=== PATIENT | male | born 1935 | race African-American/Black ===

== ENCOUNTER 2016-10-24 16:59 | Inpatient (IN) | payer MEDICARE, OTHER ==
--- NOTE | ~2016-10-24 | OP ---
Record Of Operation [facility] [address] [place]. [address] NAME: ANICETO BOWEN : 35 STATUS : ADM IN PAT#: [id number] AGE: 81 ADM/REG DATE : 10/24/16 MR#: [id number] REPORT SERV DATE: 10/25/16 DICTATED BY: SURJIT SINGH III DATE: 10/25/16 REPORT STATUS : Draft TRANSCRIBED BY: MODL DATE: 10/25/16 DATE OF PROCEDURE: 10/25/2016 PROCEDURE: Cystoscopy, bilateral retrogrades with urethral biopsies. PREOPERATIVE DIAGNOSIS: Urethral bleeding. POSTOPERATIVE DIAGNOSIS: Urethral bleeding. ANESTHESIA: General. INDICATION: The patient is an 81-year-old, black male who has been passing blood for over two months intermittently. He had a hemoglobin of 7 when he came to the hospital. Dr. Reynolds placed a catheter in his bladder after I suspected some degree of dilatation. Upon passing the catheter into the bladder, the urine output was completely clear and has remained clear. He was induced under general anesthetic. He was prepped in sterile fashion in dorsal lithotomy position. The urethra was examined with a 22 sheath. Meatus was examined for any lesions, there was were none. I could not pass the 22 sheath beyond the proximal pendulous urethra due to narrowing, the tissue was erythematous and edematous, but no mass. I then passed a ureteroscope through this area. There was no mass, no active bleeding occurred in the urethra. The bulbous urethral mucosa was edematous and erythematous, but no active bleeding or mass. 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 The bladder was entered. The urine was clear. I then passed a wire and gently dilated the stricture enough to get a 20- Monegasque sheath into the urethra. The urethra was examined with 30 degrees and to some extent 70 degrees and other than that the tissue around the stricture and the bulbous urethra no abnormalities were noted. The prostate was entered. The bladder was inspected with both 30 and 70 degree lenses and no tumors or erythema was noted. Bilateral retrogrades were done, which were normal. At this point, I was somewhat at a loss as to the origin of the bleeding. Since his urine had been clear, but he had been dripping blood for two months, I palpated his urethra. There was some mild thickening in the bulbar urethra externally but no definite mass. With that in mind, I placed a 20-Monegasque sheath and took a biopsy of the bulbous urethra and a biopsy at the site of the stricture. There was minimal bleeding and an 18 Councill tip catheter was passed easily. The patient tolerated the procedure well, and we will keep his catheter five to seven days, after which we will remove it and probably have to take a second look. I would probably start with a ureteroscope while the patient was bleeding to try to identify the bleeding source. OB/MODL Surjit Singh III, M.D. / [id number] Record Of Operation [address] [place]. [address] NAME: ANICETO BOWEN : 35 STATUS : ADM [facility]#: [id number] AGE: 81 ADM/REG DATE : 10/24/16 MR#: [id number] REPORT SERV DATE: 10/25/16 DICTATED BY: SURJIT SINGH III DATE: 10/25/16 REPORT STATUS : Draft TRANSCRIBED BY: TOREY DATE: 10/25/16 CC: Surjit Singh III, M.D.
--- NOTE | ~2016-10-24 | OP ---
Record Of Operation [facility] [address] [place] [place]. [address] NAME: ANICETO BOWEN : 35 STATUS : ADM IN PAT#: [id number] AGE: 81 ADM/REG DATE : 10/24/16 MR#: [id number] REPORT SERV DATE: 10/26/16 DICTATED BY: BRIDGETT GARCIA DATE: 10/26/16 REPORT STATUS : Draft TRANSCRIBED BY: MODRogelio DATE: 10/26/16 DATE OF PROCEDURE: PREOPERATIVE DIAGNOSES: Gross hematuria and urethral bleeding, inability to pass Richter catheter. POSTOPERATIVE DIAGNOSES: Gross hematuria and urethral bleeding, inability to pass Richter catheter. PROCEDURE PERFORMED: Filiforms and follower urethral dilation and complex catheterization. SURGEONS: Bridgett Garcia M.D. ANESTHESIA: Local. HISTORY: This is an 81-year-old white black male in the emergency room with gross urethral bleeding, hematuria, voiding dysfunction, and inability of the ER staff to place a catheter. I am planning a Richter catheter placement. PROCEDURE IN DETAIL: The patient was seen in the stretcher bed in the ER. He was placed in a supine position, and his external genitalia were sterilely prepped and draped. Lidocaine jelly was instilled per urethra. I attempted to pass a 20-Czech 3-way Richter catheter into the bladder and met resistance in the anterior urethra presumably from a stricture. I used a Bard-obstructed urethral tray and passed of a long filiforms into the bladder easily. A set of a Angela-tip dilators was then used to dilate the urethra from 8 to 18-Czech in size. I then took a 20-Czech 3-way Richter catheter and cut off and ran it over the long filiforms into the bladder without difficulty. The balloon was inflated. The filiforms removed, and continuous irrigation was begun. The urine that was obtained from the bladder was essentially clear with no overt hematuria noted. The catheter was left to gravity drainage with continuous irrigation with saline. The patient tolerated the procedure well, and there were no complications. MADISON/TOREY Bridgett Garcia M.D. / [id number] CC: Surjit Gill III, M.D.
[2016-10-24 14:15] LABS: MEAN CORPUSCULAR VOLUME 93.1 fL (80-100); MEAN PLATELET VOLUME 10.4 fL (9.2-13.0); PLATELET COUNT 211 10/3/uL (150-400); RBC DISTRIBUTION WIDTH 13.7 % (12.0-16.0)
[2016-10-24 14:16] LABS: HEMATOCRIT 20.1 % (40.0-51.0); HEMOGLOBIN 6.7 g/dL (13.6-17.8); MEAN CORPUS HGB CONC 33.3 g/dL (32.0-36.0); RED CELL COUNT 2.16 10/6/uL (4.7-6.1); WHITE BLOOD CELLS 7.5 10/3/uL (4.5-10.5)
[2016-10-24 14:33] LABS: A/G RATIO 1.1 (0.7-1.9); ALBUMIN 3.4 G/DL (3.5-5.0); ALKALINE PHOSPHATASE 64 U/L (45-117); BUN (BLOOD UREA NITROGEN) 36 MG/DL (6-23); CALCIUM, SERUM 8.4 MG/DL (8.5-10.4); CHLORIDE, SERUM 109 MMOL/L (96-112); CO2 (CARBON DIOXIDE) 24 MMOL/L (24-34); CREATININE 2.43 MG/DL (0.70-1.30); GFR AFRICAN AMERICAN 28 ML/MIN (>=60); GFR NON AFRICAN AMERICAN 24 ML/MIN (>=60); GLUCOSE, SERUM 189 MG/DL (60-99); POTASSIUM, SERUM 4.4 MMOL/L (3.5-5.3); SGOT(AST) 14 U/L (5-40); SGPT(ALT) 16 U/L (5-65); SODIUM, SERUM 144 MMOL/L (135-148); TOTAL BILIRUBIN 0.2 MG/DL (0-1.2); TOTAL PROTEIN 6.4 G/DL (6.0-8.5)
[2016-10-24 14:54] LABS: GIANT PLATELET RARE; LYMPHOCYTES 10 %; LYMPHOCYTES ABSOLUTE (CALC) 0.75 10/3/uL (0.67-4.30); MONOCYTES 5 %; MONOCYTES ABSOLUTE (CALC) 0.38 10/3/uL (0.21-1.20); NEUTROPHILS ABSOLUTE (CALC) 6.38 10/3/uL (2.02-8.40); PLATELET ESTIMATE ADQ (ADEQUATE); RBC MORPHOLOGY NORM (NORMAL); SEGMENTED NEUTROPHIL (0) 85 %; TOTAL NUCLEATED CELLS 100
[~2016-10-24 16:59] MED LIST: ASABAYER PO; ATEN50 PO; GLUCPH PO; HYDROCHLOROT25 MG PO; LEVAQUIN750 MG PO; LOTE20 PO; MEVACOR PO; NORV10 PO
[2016-10-24 23:58] LABS: ASCORBIC ACID (UR NOT ORDER) NEG (NEG); BILIRUBIN, URINE NEGATIVE (NEG); KETONE, URINE NEGATIVE (NEG); LEUKOCYTE ESTERASE(NOT OR TRACE (NEG); WBC (NOT ORDERED) (RFLEX) 4 (0-5)
[2016-10-25 07:43] LABS: BUN (BLOOD UREA NITROGEN) 37 MG/DL (6-23); CALCIUM, SERUM 8.2 MG/DL (8.5-10.4); CHLORIDE, SERUM 110 MMOL/L (96-112); CO2 (CARBON DIOXIDE) 24 MMOL/L (24-34); CREATININE 1.92 MG/DL (0.70-1.30); GFR AFRICAN AMERICAN 37 ML/MIN (>=60); GFR NON AFRICAN AMERICAN 32 ML/MIN (>=60); GLUCOSE, SERUM 190 MG/DL (60-99); POTASSIUM, SERUM 3.7 MMOL/L (3.5-5.3); SODIUM, SERUM 144 MMOL/L (135-148)
[2016-10-25 08:02] LABS: HEMATOCRIT 23.7 % (40.0-51.0); HEMOGLOBIN 8.1 g/dL (13.6-17.8)
[2016-10-25 10:19] LABS: HEMATOCRIT 24.1 % (40.0-51.0); HEMOGLOBIN 8.2 g/dL (13.6-17.8)
[2016-10-25 17:37] LABS: HEMATOCRIT 23.8 % (40.0-51.0)
[2016-10-25 23:11] LABS: HEMATOCRIT 22.7 % (40.0-51.0); HEMOGLOBIN 7.6 g/dL (13.6-17.8)
[2016-10-26 06:35] LABS: BASOPHILS 0.2 %; BASOPHILS ABSOLUTE 0.02 10/3/uL (0.0-0.16); EOSINOPHILS 3.6 %; HEMOGLOBIN 7.4 g/dL (13.6-17.8); IMMATURE GRANULOCYTES 0.2 %; IMMATURE GRANULOCYTES ABSOLUTE 0.02 10/3/uL (0.0-0.11); LYMPHOCYTES 12.2 %; LYMPHOCYTES ABSOLUTE 1.03 10/3/uL (0.67-4.30); MEAN CORPUS HGB CONC 33.6 g/dL (32.0-36.0); MEAN CORPUSCULAR HEMOGLOB 31.1 pg (26.0-34.0); MEAN CORPUSCULAR VOLUME 92.4 fL (80-100); MEAN PLATELET VOLUME 10.8 fL (9.2-13.0); MONOCYTES 12.9 %; MONOCYTES ABSOLUTE 1.09 10/3/uL (0.21-1.20); NEUTROPHILS 70.9 %; NEUTROPHILS ABSOLUTE 5.99 10/3/uL (2.02-8.40); PLATELET COUNT 150 10/3/uL (150-400); RBC DISTRIBUTION WIDTH 14.7 % (12.0-16.0); RED CELL COUNT 2.38 10/6/uL (4.7-6.1); WHITE BLOOD CELLS 8.5 10/3/uL (4.5-10.5)
[2016-10-26 06:38] LABS: MANUAL DIFF NO %
[2016-10-26 09:49] LABS: HEMATOCRIT 22.3 % (40.0-51.0); HEMOGLOBIN 7.5 g/dL (13.6-17.8)
[2016-10-26 16:44] LABS: HEMATOCRIT 23.6 % (40.0-51.0)
[2016-10-26 17:46] LABS: CALCIUM, SERUM 7.5 MG/DL (8.5-10.4); CHLORIDE, SERUM 104 MMOL/L (96-112); CO2 (CARBON DIOXIDE) 27 MMOL/L (24-34); CREATININE 1.44 MG/DL (0.70-1.30); GFR AFRICAN AMERICAN 52 ML/MIN (>=60); GFR NON AFRICAN AMERICAN 45 ML/MIN (>=60); POTASSIUM, SERUM 3.7 MMOL/L (3.5-5.3); SODIUM, SERUM 141 MMOL/L (135-148)
[2016-10-26 17:47] LABS: BUN (BLOOD UREA NITROGEN) 22 MG/DL (6-23); GLUCOSE, SERUM 135 MG/DL (60-99)
[2016-10-26 23:09] LABS: HEMATOCRIT 23.3 % (40.0-51.0); HEMOGLOBIN 7.9 g/dL (13.6-17.8)
[2016-10-27 07:04] LABS: HEMATOCRIT 25.1 % (40.0-51.0); HEMOGLOBIN 8.5 g/dL (13.6-17.8)
== END 2016-10-27 11:47 | disposition home or self-care (01) | DRG 700 ==
LOC: ER 16:59 → 7NO 19:13 → 5SO 19:28
PROVIDERS: Emergency Medicine; Urology
DX: N36.8 Other specified disorders of urethra (principal); N17.9 Acute kidney failure, unspecified; E11.9 Type 2 diabetes mellitus without complications; D50.0 Iron deficiency anemia secondary to blood loss (chronic); F17.210 Nicotine dependence, cigarettes, uncomplicated; I10 Essential (primary) hypertension; R31.0 Gross hematuria; N35.9 Urethral stricture, unspecified; Z90.79 Acquired absence of other genital organ(s)
CPT/HCPCS: 36415; 74176; 74420; 80048; 80053; 81001; 82962; 85007; 85014; 85018; 85025; 85027; 86850; 86900; 86901; 86920; 87040; 88305; 93005; 99285; A9270-GY; C1758; J2405; J3010; P9016; P9045; Q9967